=== PATIENT | female | born 1990 | race African-American/Black ===

== ENCOUNTER 2021-09-27 19:01 | Emergency (ER) | payer OTHER, SELFPAY ==
[2021-09-27 19:40] VITALS: BP 130/84; PULSE 103; RESP 18; TEMP 37.3; O2SAT 97; BMI 23.1
[2021-09-27 20:28] LABS: MANUAL DIFF FLAG NO
[2021-09-27 20:29] LABS: Basophils Percent Auto 0.7 % (0-2); Hematocrit 36.1 % (37.0-47.0); Hemoglobin 12.4 g/dl (12.0-16.0); Imm Gran Abs Auto 0.01 X10*3/uL (0.00-0.03); Imm Gran Pct Auto 0.3 % (0.0-0.4); Lymphocytes Absolute Auto 0.6 X10*3/uL (1.2-4.9); Lymphocytes Percent Auto 21.1 % (20-40); Mean Corpuscular HGB Conc 34.3 g/dl (31.0-35.0); Mean Platelet Volume 8.7 fL (9.4-12.3); Monocytes Absolute Auto 0.3 X10*3/uL (0.1-1.2); Monocytes Percent Auto 10.5 % (2-11); Neutrophils Percent Auto 66.4 % (45-73); Platelet Count 250 X10*3/uL (160-400); Red Blood Count 3.76 X10*6/uL (4.20-5.50)
[2021-09-27 21:03] LABS: Alanine Aminotransferase 140 U/L (0-31); Albumin Level 4.3 g/dL (3.5-5.0); Alkaline Phosphatase 49 U/L (39-117); Anion Gap 18 (12-20); Aspartate Amino Transferase 475 U/L (5-31); Bilirubin Direct 0.4 mg/dL (0.0-0.5); Bilirubin Total 0.9 mg/dL (0.0-1.0); Blood Urea Nitrogen 6 mg/dL (9-16); Calcium 8.6 mg/dL (8.4-10.2); Carbon Dioxide 20 mmol/L (22-29); Chloride 104 mmol/L (96-108); Creatinine Clr Calc Pharmacy 73.8; Estimated Glomerular Filt Rate > 60; Glucose Random 87 mg/dL (60-115); Lipase 20 U/L (8-78); Potassium 3.5 mmol/L (3.3-5.1); Sodium 138 mmol/L (135-145); Total Protein 7.2 g/dL (6.5-8.0)
[2021-09-27 21:17] VITALS: BP 131/78; PULSE 104; RESP 18; TEMP 37.3; O2SAT 97
[2021-09-27] MEDS: Acetaminophen 325 MG TABLET 650 MG PO (21:51)
[2021-09-27 22:38] LABS: COVID-19 Test Positive (Negative); IDNOW Serial# 55D5AD1C
[2021-09-27 23:10] VITALS: BP 126/87; PULSE 86; RESP 16; TEMP 37.6; O2SAT 98
--- NOTE | 2021-09-27 23:22 | ED_ITS ---
HPI - Nausea/Vomiting/Diarrhea General Chief complaint: Nausea/Vomiting/Diarrhea Stated complaint: Fever Time Seen by Provider: 09/27/21 23:20 Source: patient Mode of arrival: ambulatory Limitations: no limitations History of Present Illness HPI Narrative: 31-year-old female presenting to the emergency department with malaise, fatigue, nausea, vomiting, diffuse headache, runny nose, dizziness described as lighthe adedness, productive cough of yellow sputum, fevers T-max a 101 degrees. Also reports poor appetite however still eating and drinking. Patient reports that these symptoms started this morning. Vaccinated against COVID. Taking tylenol without relief. Related Data Allergies Allergy/AdvReac Type Severity Reaction Status Date / Time No Known Allergies Allergy Verified 09/27/21 19:40 Review of Systems Review of Systems: Constitutional : No Weight loss, + Fever, + Chills, + Fatigue, + Malaise ENT/Mouth : No sore throat, No Rhinorrhea Eyes: No Eye Pain, No Swelling, No Redness Cardiovascular : No Chest Pain, No SOB, No Dyspnea on Exertion, No Orthopnea, No Edema, No Palpitations Respiratory : No Cough, No Sputum, No Wheezing Gastrointestinal : + Nausea, + Vomiting, No Diarrhea, No Constipation, No abdominal Pain, No Hematochezia, No Melena Genitourinary : No Dysuria, No Urinary Frequency, No Hematuria, Musculoskeletal : No joint pain, No Myalgias, No Joint Swelling Skin : No Skin Lesions, No rash Neuro : No Weakness, No Numbness, + Dizziness, + Headache All other systems reviewed and are negative Yes all other systems are reviewed and are negative [facility], [facility] Past Medical History Attestation statement: The following information was validated with the patient. Source: old records reviewed and nursing notes reviewed Social History Social History Advance Directives: No Physical Exam Vital Signs: Vital Signs: Last Vital Signs Temp 99.6 F 09/27/21 23:10 Pulse 86 09/27/21 23:10 Resp 16 09/27/21 23:10 BP 126/87 09/27/21 23:10 Pulse Ox 98 09/27/21 23:10 O2 Del Method 09/27/21 23:10 BMI result Body Mass Index 23.1 VSS Appearance: Alert.? Oriented X3.? No acute distress.? Head: Normocephalic, atraumatic, no step-offs or deformities Eyes: Pupils equal, round and reactive to light.? ENT: Pharynx normal.? Neck: Normal inspection.? Neck supple.? CVS: Normal heart rate and rhythm.? Pulses normal.? Respiratory: No respiratory distress.? Breath sounds normal.? Abdomen: Soft and nontender.? Skin: Skin warm and dry.? Normal skin color.? Normal skin turgor.? Extremities: No lower extremity edema.? No calf ttp, negative angelia. 5/5 strength to bilateral upper and lower extremities Neuro: Oriented X 3.? No motor deficit.? No sensory deficit. CN 2-12 intact Course Reevaluation(s) Reevaluation #1: Patient with low white blood cell count likely secondary to viral infection. Chemistry with no acute electrolyte abnormalities requiring intervention. Transaminases elevated likely secondary to viral infection. No abdominal pain to palpation. Unlikely intra-abdominal process. Patient is noted to be COVID positive. Vital signs are stable. At this time patient will be discharged home. Advised to return with new or worsening symptoms. I did discuss initiating Paxlovid with patient, however will hold at this time per patient request, she tells me she will return within the next 5 days if she would like initiated. At time of discharge patient tolerating p.o. fluids. Vital signs are stable. Discharging home with strict return precautions. Time: 23:42 MDM - Nausea/Vomiting/Diarrhea MDM Narrative Medical decision making narrative: 2330 31-year-old female presents with COVID like symptoms since this morning. Fully vaccinated. Physical examination benign. Negative Angelia bilaterally. Symptoms likely secondary to COVID-19. Unlikely that this is PE, pneumonia. Plan at this time is to obtain a COVID test. No need for imaging as lungs are clear on auscultation and VSS Medical Records Attestation: I reviewed the patient's medical records. Lab Data Attestation: I reviewed the patient's lab results. Result diagrams: 09/27/21 20:19 09/27/21 20:19 Labs: Lab Results 09/27/21 09/27/21 09/27/21 Range/Units 20:19 20:19 22:00 WBC 3.0 L (4.8-10.8) X10*3/uL RBC 3.76 L (4.20-5.50) X10*6/uL Hgb 12.4 (12.0-16.0) g/dl Hct 36.1 L (37.0-47.0) % MCV 96.0 (80.0-98.0) fL MCH 33.0 (27.0-33.0) pg MCHC 34.3 (31.0-35.0) g/dl RDW 14.0 (11.0-16.0) % Plt Count 250 (160-400) X10*3/uL MPV 8.7 L (9.4-12.3) fL Immature Gran % (Auto) 0.3 (0.0-0.4) % Neut % (Auto) 66.4 (45-73) % Lymph % (Auto) 21.1 (20-40) % [place] % (Auto) 10.5 (2-11) % Eos % (Auto) 1.0 (0-4) % Baso % (Auto) 0.7 (0-2) % Lymph # (Auto) 0.6 L (1.2-4.9) X10*3/uL [place] # (Auto) 0.3 (0.1-1.2) X10*3/uL Eos # (Auto) 0.0 (0.0-0.4) X10*3/uL Baso # (Auto) 0.0 (0.0-0.2) X10*3/uL Abs Immat Gran (auto) 0.01 (0.00-0.03) X10*3/uL Absolute Neuts (auto) 2.0 (2.0-8.3) x10*3/uL Absolute Nucleated RBC 0.000 (0.0-0.012) X10*3/uL Nucleated RBC % (auto) 0.0 (0.0-0.2) /100WBC Sodium 138 (135-145) mmol/L Potassium 3.5 (3.3-5.1) mmol/L Chloride 104 (96-108) mmol/L Carbon Dioxide 20 L (22-29) mmol/L Anion Gap 18 (12-20) BUN 6 L (9-16) mg/dL Creatinine 0.76 (0.5-1.4) mg/dL Estim Creat Clear Calc 73.8 Estimated GFR > 60 Random Glucose 87 (60-115) mg/dL Calcium 8.6 (8.4-10.2) mg/dL Total Bilirubin 0.9 (0.0-1.0) mg/dL Direct Bilirubin 0.4 (0.0-0.5) mg/dL AST 475 H (5-31) U/L ALT 140 H (0-31) U/L Alkaline Phosphatase 49 (39-117) U/L Total Protein 7.2 (6.5-8.0) g/dL Albumin 4.3 (3.5-5.0) g/dL Lipase 20 (8-78) U/L COVID-19 (MYA) Positive A (Negative) COVID-19 Clin Com See Note Critical Care Time Critical Care Time Critical Care Time: No Discharge Plan Discharge Clinical Impression: COVID-19 Patient Disposition: Home, Self-Care Instructions: COVID-19 (Coronavirus Disease 2019) (ED) Additional Instructions: Take your medications as prescribed. If you were prescribed antibiotics today, it is important that you take your medication to their entirety, do not skip any doses, do not finish them early. Today you tested positive for COVID-19. Take ibuprofen every 6 hours, Tylenol every 4 as needed for fevers or body aches. Quarantine for 5 days and ensure you wear a mask. After 5 days you should wear a mask for 5 days after that. Practice social distancing and good hand hygiene. Drink plenty of fluids. Follow-up with your primary care provider this week. Return to the emergency department with new or worsening symptoms. In case of emergency call 911 You can purchase a pulse oximeter from your local pharmacy or grocery store, and monitor your oxygen saturation if it goes below 94% you should return to the emergency department for further evaluation. We discussed initiating paxlovid however choose not to take it at this time. Please return or see pcp if you feel like you change your mind. Referrals: Physician,Unknown J [Primary Care Provider] - 2 days Stand Alone Forms: Work/School Release
--- NOTE | 2021-09-28 00:12 | PC.NURSE ---
Pt is alert and oriented and able to ambulate without assistance. Discharge instructions explained and given to pt.
== END 2021-09-28 00:10 | disposition home or self-care (01) ==
PROVIDERS: Emergency Provider Student in an Organized Health Care Education/Training Program
DX: U07.1 COVID-19 (principal); R11.2 Nausea with vomiting, unspecified; R53.1 Weakness; Z79.899 Other long term (current) drug therapy
CPT/HCPCS: 36415; 80048; 80076; 83690; 85025; 87635; 99283; 99284

== ENCOUNTER 2023-01-08 22:25 | Emergency (ER) | payer OTHER, SELFPAY ==
[2023-01-08 22:57] VITALS: BP 135/90; PULSE 100; RESP 18; TEMP 36.6; O2SAT 98; BMI 24.4
== END 2023-01-08 23:43 | disposition left against medical advice (07) ==
LOC: HO.ED 23:06
PROVIDERS: Emergency Provider Emergency Medicine
DX: H57.11 Ocular pain, right eye (principal)
CPT/HCPCS: 99281

== ENCOUNTER 2024-01-10 22:17 | Emergency (ER) | payer OTHER, SELFPAY ==
--- NOTE | ~2024-01-10 | XR_ITS ---
EXAMINATION: XR CHEST CLINICAL INFORMATION: Cough. Possible left rib fracture. COMPARISON: None available. TECHNIQUE: Frontal view of the chest was obtained. FINDINGS: Normal appearance of the cardiomediastinal structures. No effusions or pneumothoraces. No focal pulmonary consolidation. Normal pattern of pulmonary vasculature. Findings suspicious for focal cortical discontinuity of the lateral segment of the left ninth rib are noted though these findings are at the limits of sensitivity in detection of this examination. XR/XR chest 1V IMPRESSION: *No cardiopulmonary abnormalities. *Findings suspicious for a possible displaced fracture of the lateral segment of the left ninth rib. As clinically indicated, findings could be further evaluated with dedicated rib radiographs. Electronically signed by: Dimitry Leavitt MD 01/11/2024 01:16 AM [facility]
[2024-01-10 22:18] VITALS: BP 118/58; PULSE 102; RESP 20; TEMP 36.6; O2SAT 100; BMI 28.3
--- NOTE | 2024-01-10 22:36 | PC.NURSE ---
pt from triage, assume care of pt at this time
--- NOTE | 2024-01-10 23:38 | ED.SOB ---
HPI - SOB/Dyspnea General Chief Complaint: Dyspnea Stated Complaint: sob, 30wks Time Seen by Provider: 01/10/24 23:30 Source: patient Mode of arrival: ambulatory Limitations: no limitations History of Present Illness ED Provider: Dr. Kimberley Hopper HPI Narrative: patient is a at approximately 30 weeks of gestational age. The patient comes to the emergency room complaining of shortness of breath and wheezing for 1 day. Patient states that she has had a URI for 2 weeks. Patient has been coughing quite a bit, believes she fractured a rib on the left side, she was given Tylenol for pain. Patient states that the cough is worsening and it is now productive. Patient denies any history of asthma. However, patient noted that today she is wheezing. Patient complaining of mild chest tightness. Related Data Previous Rx's ?Medication ?Instructions ?Recorded albuterol sulfate 90 mcg/actuation 2 puff inhalation Q4-6H PRN 01/11/24 aerosol inhaler shortness of breath or wheezing #8.5 grams prednisone 50 mg tablet 50 mg PO DAILY #4 tabs 01/11/24 Allergies Allergy/AdvReac Type Severity Reaction Status Date / Time No Known Allergies Allergy Verified 01/10/24 22:20 Review of Systems Review of Systems: Constitutional : No Weight loss, No Fever, No Chills, No Night Sweats, No Fatigue, No Malaise ENT/Mouth : No Hearing loss, No Ear Pain, No Nasal Congestion, No Sinus Pain, No Hoarseness, No sore throat, No Rhinorrhea, No Swallowing Difficulty Eyes: No Eye Pain, No Swelling, No Redness, No Foreign Body, No Discharge, No Vision Changes Cardiovascular : No Chest Pain, No SOB, No Dyspnea on Exertion, No Orthopnea, No Edema, No Palpitations Respiratory : Complaining of productive cough, wheezing, chest tightness Gastrointestinal : No Nausea, No Vomiting, No Diarrhea, No Constipation, No abdominal Pain, No Hematochezia, No Melena Genitourinary : no irregular bleeding, No Dysuria, No Urinary Frequency, No Hematuria, No Urinary Incontinence, No Urgency, No Flank Pain, No Urinary Flow Changes, No Hesitancy Musculoskeletal : No joint pain, No Myalgias, No Joint Swelling Skin : No Skin Lesions, No rash Neuro : No Weakness, No Numbness, No Paresthesias, No Loss of Consciousness, No Dizziness, No Headache Psych : No Anxiety/Panic, No Depression, No SI/HI/AH/VH, No Social Issues, Heme/Lymph: No Bruising, No Bleeding,No Lymphadenopathy Endocrine : No Polyuria, No Polydipsia, No Temperature Intolerance [facility] Social History Social History Alcohol intake: never Patient Tobacco Use Status: Current someday Tobacco user Smoked in Last 30 Days: No Use of substances other than those prescribed or required for medical reasons: No Substance Use Type: Marijuana Advance Directives: No Advance Directives Information Provided: No Do you have a plan to hurt others: No Plan Patient : Yes Physical Exam Vital Signs: Vital Signs: Last Vital Signs Temp 97.8 F 01/10/24 22:18 Pulse 103 H 01/10/24 23:55 Resp 20 01/10/24 23:55 BP 118/58 L 01/10/24 22:18 Pulse Ox 100 01/10/24 22:18 O2 Del Method Room Air 01/10/24 22:18 BMI result Body Mass Index 28.3 Const: Other: Appearance: Alert. Oriented X3. No acute distress. Eyes: Pupils equal, round and reactive to light. ENT: Pharynx normal. Neck: Normal inspection. Neck supple. No lymph nodes noted. No crepitus CVS: Normal heart rate and rhythm. Pulses normal. Normal S1 and S2 Respiratory: normal respiratory rate. Patient is wheezing bilateral, moderate air movement , reproducible pain to palpation over the left side of the chest on the ribs Abdomen: Soft and nontender. No rigidity. No distention. Skin: Skin warm and dry. Normal skin color. Normal skin turgor. Extremities: No lower extremity edema. No Lacerations. No Rash Neuro: Oriented X 3. No motor deficit. No sensory deficit. Moving all extremities. No slurred speech. CN 2 through 12 grossly intact Psych: calm, cooperative, normal affect Course Course Course Narrative: patient is wheezing significantly. Patient is being giving albuterol and Solu-Medrol and magnesium. Patient's labs pending I discussed with the patient that we avoid doing chest x-rays during . However, patient has had URI symptoms for 2 weeks and they are getting worse. Patient now having productive cough. I discussed with the patient that there is a probability that viral URIs can become pneumonia. Also, if patient is not taking deep inspirations due to pain on the left side for possible rib fracture, she may also develop atelectasis versus pneumonia. Patient agreeable to get the chest x-ray done, we will cover the patient's abdomen. Medications Administered Generic Name Dose Route Start Last Admin Trade Name Freq PRN Reason Stop Dose Admin Magnesium Sulfate 2 gm in 50 mls @ 25 mls/hr 01/10/24 23:37 01/10/24 23:59 Magnesium Sulfate/H2o IV 01/11/24 01:36 25 mls/hr ONCE ONE Administration Discontinued Medications Generic Name Dose Route Start Last Admin Trade Name Freq PRN Reason Stop Dose Admin Albuterol Sulfate 2.5 mg 01/10/24 23:51 01/10/24 23:52 Albuterol Sulfate (0.083%) 2.5 Mg/3 Ml Vial.Neb INHALE 01/10/24 23:52 2.5 mg ONCE ONE Administration Methylprednisolone Sodium Succinate 125 mg 01/10/24 23:37 01/10/24 23:59 Methylprednisolone Sod Succ 125 Mg/2 Ml Vial IVPUSH 01/10/24 23:38 125 mg ONCE ONE Administration Medical Decision Making Medical Decision Making [facility] Narrative: my interpretation of labs, normal white blood cell count, normal hematology, patient not anemic. Chemistry at baseline, no obvious abnormalities. COVID flu negative - chest x-ray does not show acute pneumonia but does show a rib fracture on the left. - Patient receiving 1 more nebulization treatment. -Patient oxygen saturation 100, minimal wheezing, moving air much better. Patient states that she feels back to baseline. Differential Diagnosis Differential Diagnoses: The differential diagnosis associated with the presentation includes ( Bronchitis, asthma exacerbation, pneumonia, fracture rib) Admission/Observation Consideration of admission/observation: Escalation of care including admission/observation considered ( given patient being , asthma exacerbation, observation was considered) Lab Data [facility] Lab Attestation statement: I reviewed the patient's lab results. 01/10/24 23:57 01/10/24 23:57 Labs: Lab Results 01/10/24 01/10/24 Range/Units 23:48 23:57 WBC 10.6 (4.8-10.8) X10*3/uL RBC 3.93 L (4.20-5.50) X10*6/uL Hgb 12.2 (12.0-16.0) g/dl Hct 35.9 L (37.0-47.0) % MCV 91.3 (80.0-98.0) fL MCH 31.0 (27.0-33.0) pg MCHC 34.0 (31.0-35.0) g/dl RDW 12.8 (11.0-16.0) % Plt Count 390 D (160-400) X10*3/uL MPV 9.1 L (9.4-12.3) fL Immature Gran % (Auto) 0.7 H (0.0-0.4) % Neut % (Auto) 62.9 (45-73) % Lymph % (Auto) 23.9 (20-40) % [place] % (Auto) 7.9 (2-11) % Eos % (Auto) 4.2 H (0-4) % Baso % (Auto) 0.4 (0-2) % Lymph # (Auto) 2.5 (1.2-4.9) X10*3/uL [place] # (Auto) 0.8 (0.1-1.2) X10*3/uL Eos # (Auto) 0.5 H (0.0-0.4) X10*3/uL Baso # (Auto) 0.0 (0.0-0.2) X10*3/uL Abs Immat Gran (auto) 0.07 H (0.00-0.03) X10*3/uL Absolute Neuts (auto) 6.7 (2.0-8.3) x10*3/uL Absolute Nucleated RBC 0.000 (0.0-0.012) X10*3/uL Nucleated RBC % (auto) 0.0 (0.0-0.2) /100WBC Sodium 137 (135-145) mmol/L Potassium 3.9 (3.3-5.1) mmol/L Chloride 108 (96-108) mmol/L Carbon Dioxide 19 L (22-29) mmol/L Anion Gap 14 (12-20) BUN 5 L (9-16) mg/dL Creatinine 0.62 (0.5-1.4) mg/dL Estim Creat Clear Calc 105.5 Estimated GFR > 60 Random Glucose 86 (60-115) mg/dL Calcium 9.2 D (8.4-10.2) mg/dL Total Bilirubin 0.4 (0.0-1.0) mg/dL Direct Bilirubin 0.1 (0.0-0.5) mg/dL AST 41 H (5-31) U/L ALT 21 (0-31) U/L Alkaline Phosphatase 93 (39-117) U/L Total Protein 6.9 (6.5-8.0) g/dL Albumin 3.4 L (3.5-5.0) g/dL COVID-19 (MYA) Negative (Negative) COVID-19 Clin Com See Note Influenza Type A (JIM) Negative (Negative) Influenza Type B (JIM) Negative (Negative) Influenza A & B Note See Note Independent Interpretation I performed an independent interpretation of an: Plain X-Ray Radiology Impression Discussion of test interpretation with radiology: I have reviewed the radiologist's reading. Radiologist Impression: *Findings suspicious for a possible displaced fracture of the lateral segment of the left ninth rib. As clinically indicated, findings could be further evaluated with dedicated rib radiographs. Discharge Plan Discharge Clinical Impression: Acute viral bronchitis, Wheezing, Fracture of rib due to cough Patient Disposition: Home, Self-Care Instructions: Rib Fracture (ED), Acute Bronchitis (ED), Wheezing (ED) Additional Instructions: Please follow-up with your primary care physician tomorrow. If you have any worsening or new symptoms, please return to the emergency room or call 911 Prescriptions: New albuterol sulfate 90 mcg/actuation HFA aerosol inhaler 2 puff inhalation Q4-6H PRN (Reason: shortness of breath or wheezing) Qty: 8.5 0RF prednisone 50 mg tablet 50 mg PO DAILY Qty: 4 0RF Print Language: E[place]an
[2024-01-10] MEDS: Albuterol Sulfate (0.083%) 2.5 MG/3 ML VIAL.NEB INHALE (23:52)
[2024-01-10 23:55] VITALS: PULSE 103; RESP 20; O2SAT 95
[2024-01-10] MEDS: Magnesium Sulfate/H2O 2 GM/50 ML PIGGYBACK IV (23:59)
[2024-01-10] MEDS: methylPREDNISolone Sod Succ 125 MG/2 ML VIAL IVPUSH (23:59)
[2024-01-11 00:04] LABS: MANUAL DIFF FLAG NO
[2024-01-11 00:07] LABS: Basophils Percent Auto 0.4 % (0-2); Eosinophils Absolute Auto 0.5 X10*3/uL (0.0-0.4); Eosinophils Percent Auto 4.2 % (0-4); Hematocrit 35.9 % (37.0-47.0); Hemoglobin 12.2 g/dl (12.0-16.0); Imm Gran Abs Auto 0.07 X10*3/uL (0.00-0.03); Imm Gran Pct Auto 0.7 % (0.0-0.4); Lymphocytes Absolute Auto 2.5 X10*3/uL (1.2-4.9); Lymphocytes Percent Auto 23.9 % (20-40); Mean Corpuscular Volume 91.3 fL (80.0-98.0); Mean Platelet Volume 9.1 fL (9.4-12.3); Monocytes Absolute Auto 0.8 X10*3/uL (0.1-1.2); Monocytes Percent Auto 7.9 % (2-11); Neutrophils Absolute Auto 6.7 x10*3/uL (2.0-8.3); Neutrophils Percent Auto 62.9 % (45-73); Platelet Count 390 X10*3/uL (160-400); Red Blood Count 3.93 X10*6/uL (4.20-5.50); Red Cell Distribution Width 12.8 % (11.0-16.0); White Blood Count 10.6 X10*3/uL (4.8-10.8)
[2024-01-11 00:27] LABS: Alanine Aminotransferase 21 U/L (0-31); Albumin Level 3.4 g/dL (3.5-5.0); Alkaline Phosphatase 93 U/L (39-117); Anion Gap 14 (12-20); Aspartate Amino Transferase 41 U/L (5-31); Bilirubin Direct 0.1 mg/dL (0.0-0.5); Bilirubin Total 0.4 mg/dL (0.0-1.0); Blood Urea Nitrogen 5 mg/dL (9-16); Calcium 9.2 mg/dL (8.4-10.2); Carbon Dioxide 19 mmol/L (22-29); Chloride 108 mmol/L (96-108); Creatinine Clr Calc Pharmacy 105.5; Estimated Glomerular Filt Rate > 60; Glucose Random 86 mg/dL (60-115); Potassium 3.9 mmol/L (3.3-5.1); Sodium 137 mmol/L (135-145); Total Protein 6.9 g/dL (6.5-8.0)
[2024-01-11 01:25] LABS: COVID-19 Test Negative (Negative); IDNOW Serial# 08D9AD1C; IDNOW Serial# 152EDE1D; Influenza A Negative (Negative); Influenza B2 Negative (Negative)
[2024-01-11] MEDS: Albuterol Sulfate (0.083%) 2.5 MG/3 ML VIAL.NEB 5 MG INHALE (01:48)
[2024-01-11 01:49] VITALS: PULSE 101; RESP 16; O2SAT 100
[2024-01-11 02:09] VITALS: BP 109/65; PULSE 106; RESP 18; TEMP 36.7; O2SAT 97
== END 2024-01-11 02:10 | disposition home or self-care (01) ==
PROVIDERS: Emergency Provider Emergency Medicine
DX: O26.893 Other specified pregnancy related conditions, third trimester (principal); J40 Bronchitis, not specified as acute or chronic; R06.02 Shortness of breath; Z3A.30 30 weeks gestation of pregnancy; Z79.899 Other long term (current) drug therapy
CPT/HCPCS: 71045; 80048; 80076; 85025; 87502; 87635; 94640; 96365; 96366; 96375; 99284; J2919; J3475